=== PATIENT | female | born 1950 | race Hispanic/Latino ===

== ENCOUNTER 2022-10-15 13:56 | Emergency (ER) | payer MEDICAID, SELFPAY ==
--- NOTE | 2022-10-15 14:02 | ED.LOWEXIN ---
HPI - Extremity Injury (Lower) General Chief Complaint: Skin/Abscess/Foreign Body Stated Complaint: Right Foot Pain Time Seen by Provider: 10/15/22 14:02 Source: patient Mode of arrival: ambulatory Limitations: no limitations History of Present Illness HPI Narrative: Patient is a 72-year-old female who presents with laceration to right ankle after mop broke while mopping 2 days ago. Patient states it has began healing but is now having redness and swelling around. Concern for infection. Patient has cataract surgery on Monday. Denies any numbness tingling, pain or weakness to foot. Denies any fever, chills, nausea, vomiting, diarrhea. Unsure if she has ever had a tetanus shot Related Data Home Medications Medication Instructions Recorded Confirmed alendronate 70 mg tablet 70 mg PO MONTHLY 10/15/22 10/15/22 dulaglutide 0.75 mg/0.5 mL 0.75 mg subcut DIRECTED 10/15/22 10/15/22 subcutaneous pen injector (Trulicity) escitalopram oxalate 10 mg tablet 10 mg PO DAILY 10/15/22 10/15/22 metformin 1,000 mg tablet 1,000 mg PO BID 10/15/22 10/15/22 Allergies Allergy/AdvReac Type Severity Reaction Status Date / Time No Known Allergies Allergy Verified 10/15/22 14:36 Review of Systems Review of Systems: All systems reviewed & are unremarkable except as noted in HPI and below Constitutional: Constitutional: Denies body ache(s), Denies chills, Denies fatigue, Denies fever(s), Denies headache(s), Denies malaise and Denies weakness Eyes: Eyes: Denies blurry vision, Denies irritation and Denies loss of vision ENT: Denies otalgia, Denies headache(s), Denies nasal discharge, Denies sinus pain and Denies sore throat Cardiovascular: Cardiovascular: Denies chest pain, Denies irregular heart rhythm and Denies dyspnea Respiratory: Respiratory: Denies dyspnea Gastrointestinal: Gastrointestinal: Denies abdominal pain, Denies melena, Denies hematochezia, Denies diarrhea, Denies nausea and Denies vomiting Musculoskeletal: Musculoskeletal: Denies back pain, Denies myalgias and Denies arthralgias Integumentary/Breasts: Skin/Breast: Denies pruritus, Denies rash and Reports wounds Neurologic: Denies headache(s), Denies loss of vision and Denies weakness Psychiatric: Psychiatric: Reports no additional psychiatric complaints Endocrine: Endocrine: Denies fatigue PMFSH Comments At time of signature, agree with nursing past medical, surgical, social and family history. There is no relevant family history pertinent to the presenting complaint. Exam Const: General: cooperative, healthy appearing, comfortable, no acute distress and well nourished Nutritional Appearance: well nourished Orientation/consciousness: patient oriented x3 Limitations: no limitations HENMT: Head: normal to inspection, normocephalic and atraumatic Ears: hearing grossly normal bilaterally and external ears normal Face/Nose/Sinus: Normal external nose present, normal facial exam and face symmetric Face and sinus: normal facial exam and face symmetric Mouth: Yes lip normal Eyes: General: appearance normal, both eyes and all related structures Alignment and Position: alignment normal and position normal Periorbital: periorbital findings normal Eyelids: eyelids normal Pupils: Equal, round and reactive pupils present EOM: EOMs intact bilaterally Neck: Neck: normal visual inspection, full ROM and supple Chest: Chest palpation & inspection: normal inspection of the chest Resp: Effort & Inspection: normal respiratory effort and able to speak in complete sentences Auscultation: clear to auscultation bilaterally Cardio: Rate: regular rate Rhythm: regular rhythm Heart sounds: S1 normal heart sound present and S2 normal heart sound present GI: Inspection: normal to inspection Skin: General skin exam: normal color and no rashes or lesions noted Neuro: General: patient oriented x3 and moves all extremities Cranial nerves: Yes Equal, round and reactive pup
[2022-10-15 14:11] VITALS: BP 133/55; PULSE 69; RESP 18; TEMP 36.9; O2SAT 97
[2022-10-15] MEDS: TETANUS,DIPHTHERIA,AC PERTUSSIS ADULT (0.5 ML) BOOSTRIX IM (15:04)
[2022-10-15 15:10] VITALS: BP 126/62
== END 2022-10-15 15:10 | disposition home or self-care (01) ==
PROVIDERS: Emergency Provider Nurse Practitioner Family; PCP Hospitalist
DX: L03.115 Cellulitis of right lower limb (principal); Z23 Encounter for immunization; Z79.84 Long term (current) use of oral hypoglycemic drugs; E11.9 Type 2 diabetes mellitus without complications; F32.A Depression, unspecified; M81.0 Age-related osteoporosis without current pathological fracture
CPT/HCPCS: 90471; 90715; 99203; G0463

== ENCOUNTER 2023-09-01 19:23 | Emergency (ER) | payer OTHER, SELFPAY ==
[2023-09-01 19:25] VITALS: BP 200/105; PULSE 94; RESP 16; TEMP 36.9; O2SAT 96
--- NOTE | 2023-09-01 20:34 | PC.NURSE ---
pt not in room or waiting room,
== END 2023-09-01 21:20 | disposition left against medical advice (07) ==
PROVIDERS: PCP Hospitalist
DX: S99.922A Unspecified injury of left foot, initial encounter (principal); S99.921A Unspecified injury of right foot, initial encounter; V86.79XA Person on outside of other special all-terrain or other off-road motor vehicles injured in nontraffic accident, initial encounter
CPT/HCPCS: 99199